=== PATIENT | male | born 1975 | race Caucasian/White ===

== ENCOUNTER 2017-07-29 13:47 | Emergency (ER) | payer OTHER ==
[~2017-07-29] VITALS: Ht 175.3 cm; Wt 120.9 kg
[~2017-07-29 13:47] MED LIST: ADVA250A INH; ALBU17I; METH750T2 PO
[2017-07-29] MEDS ORDERED: SODIUM CHLOR 0.9% 1000 ML INJ 1,000 ML IV SCH (14:05)
[2017-07-29 14:09] VITALS: BP 135/77; PULSE 73; RESP 20; TEMP 98; O2SAT 99
[2017-07-29 14:13] VITALS: BP 135/77; PULSE 77; RESP 18; O2SAT 100
[2017-07-29] MEDS ORDERED: MORPHINE SULFATE 4 MG/ML INJ IV PUSH ONE ×2 (14:15→16:30)
[2017-07-29] MEDS ORDERED: ONDANSETRON ODT 4 MG TAB PO ONE ×2 (14:15→16:30)
[2017-07-29] MEDS ORDERED: TETANUS/DIPHTHERIA TOXOID ADULT 0.5 ML VIAL IM ONE (14:15)
[2017-07-29] MEDS ORDERED: LIDOCAINE 1%/EPINEPHrine 1:100,000 SOLN 20 ML VIAL INFIL ONE (14:15)
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
--- NOTE | 2017-07-29 16:34 | RADRPT ---
EXAM DATE/TIME: 07/29/2017 16:08 [facility] COMPARISON: No previous studies available for comparison. INDICATIONS : Lower back pain. RADIATION DOSE: 35.86 CTDIvol (mGy) MEDICAL HISTORY : Hypertension. Diabetes mellitus type 2. Asthma SURGICAL HISTORY : None. ENCOUNTER: Initial ACUITY: 1 day PAIN SCALE: 4/10 LOCATION: lower back TECHNIQUE: Volumetric scanning of the lumbar spine was performed. Multiplanar reconstructions in the sagittal, coronal and oblique axial planes were performed. Using automated exposure control and adjustment of the mA and/or kV according to patient size, radiation dose was kept as low as reasonably achievable t o obtain optimal diagnostic quality images. DICOM format image data is available electronically for review and comparison. FINDINGS: VERTEBRAE: Normal vertebral body height. No acute bony fracture. ALIGNMENT: No evidence of subluxation. T12-L1: The thecal sac has a normal diameter. No evidence of disc bulge or protrusion. The neural foramina are patent bilaterally. L1-L2: The thecal sac has a normal diameter. No evidence of disc bulge or protrusion. The neural foramina are patent bilaterally. L2-L3: The thecal sac has a normal diameter. No evidence of disc bulge or protrusion. The neural foramina are patent bilaterally. L3-L4: The thecal sac has a normal diameter. No evidence of disc bulge or protrusion. The neural foramina are patent bilaterally. Mild facet arthritis. L4-L5: The thecal sac has a normal diameter. No evidence of disc bulge or protrusion. The neural foramina are patent bilaterally. Mild facet arthritis. L5-S1: The thecal sac has a normal diameter. No evidence of disc bulge or protrusion. The neural foramina are patent bilaterally. Mild facet arthritis. CONCLUSION: 1. No acute bony fracture. 2. Mild bilateral facet arthritis. Alfredo Sherwood MD on July 29, 2017 at 16:30 Board Certified Radiologist. This report was verified electronically.
[2017-07-29 16:37] VITALS: BP 138/76; PULSE 97; RESP 18; O2SAT 99
[2017-07-29 16:49] VITALS: RESP 18
[2017-07-29] MEDS ORDERED: PROMETHAZINE INJ 25 MG/ML VIAL IM ONE (17:00)
[2017-07-29 17:50] LABS: AUTOMATED NEUTROPHIL # 23.7 TH/MM3 (1.8-7.7); BASOPHIL % 0.1 % (0.0-2.0); EOSINOPHIL % 0.1 % (0.0-4.0); HEMATOCRIT 38.5 % (39.0-51.0); HEMOGLOBIN 12.5 GM/DL (13.0-17.0); LYMPH % 4.2 % (9.0-44.0); LYMPHOCYTE # 1.1 TH/MM3 (1.0-4.8); MEAN CELL VOLUME 82.6 FL (80.0-100.0); MEAN CORPUSCULAR HEMOGLOBIN 26.9 PG (27.0-34.0); MEAN CORPUSCULAR HGB CONC 32.6 % (32.0-36.0); MEAN PLATELET VOLUME 8.8 FL (7.0-11.0); MONOCYTE # 1.3 TH/MM3 (0-0.9); NEUT % 90.6 % (16.0-70.0); PLATELET COUNT 262 TH/MM3 (150-450); RED BLOOD COUNT 4.66 MIL/MM3 (4.50-5.90); WHITE BLOOD COUNT 26.1 TH/MM3 (4.0-11.0)
[2017-07-29 18:01] LABS: BICARBONATE 20.9 MEQ/L (21.0-32.0); CALCIUM 8.1 MG/DL (8.5-10.1); CREATININE 0.9 MG/DL (0.60-1.30)
[2017-07-29] MEDS ORDERED: IBUP1TAB7 PO (18:41)
[2017-07-29] MEDS ORDERED: CYCL10TA PO (18:41)
[2017-07-29] MEDS ORDERED: ZOFR4TAB3 SL (18:49)
== END 2017-07-29 18:30 | disposition home or self-care (01) ==
LOC: NEPD 13:47
DX: S01.01XA Laceration without foreign body of scalp, initial encounter (principal); M79.1 Myalgia; S40.212A Abrasion of left shoulder, initial encounter; V83.5XXA Driver of special industrial vehicle injured in nontraffic accident, initial encounter; Z23 Encounter for immunization
CPT/HCPCS: 12002; 70450; 71045; 72125; 72131; 73010; 80048; 85025; 90471; 90714; 96361; 96372; 96374; 96376; 99285; J2270; J2550; J7030; 85610; 85730